=== PATIENT | female | born 1965 | race Caucasian/White ===

== ENCOUNTER 2017-01-31 13:22 | Emergency (ER) | payer SELFPAY ==
--- NOTE | ~2017-01-31 | ER ---
PATIENT'S NAME: NATHANAEL ANTUNEZ [facility] AGE: 51 Y [address] ROOM: [place] [address] LOCATION: [facility] ADMIT DATE: 01/31/2017 ER/Outpatient Report DISCHARGE DATE: 01/31/2017 FAMILY PHYSICIAN: PHYSICIAN, NO ATTENDING PHYSICIAN: Nelda James TIME SEEN: 1535 hours. CHIEF COMPLAINT: Left wrist pain. HISTORY OF PRESENT ILLNESS: The patient is a 51-year-old female who developed left wrist pain over the last 2 days. She denies any direct blows or falls to the wrist. She also denies any fever or redness involving the wrist. 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 Denies any history of gout or rheumatoid arthritis. ALLERGIES: NONE. HOME MEDICATIONS: See copied list. She has been using some ibuprofen for pain though. PAST MEDICAL HISTORY: Includes pbz-[id number]-awurtsjca diabetes, congestive heart failure, hypertension, and coronary artery disease. PAST SURGICAL HISTORY: Includes cholecystectomy, tonsillectomy, and hysterectomy. SOCIAL HISTORY: No recent tobacco or alcohol use. REVIEW OF SYSTEMS: GENERAL: Health good. HEAD/EENT: No recent sore throat. RESPIRATORY: Negative. CARDIOVASCULAR: Negative. MUSCULOSKELETAL: Includes left wrist pain with no history of any trauma. NEUROLOGIC: No numbness or tingling to her hand. PHYSICAL EXAMINATION: VITAL SIGNS: Blood pressure 164/78, temperature is 98.4, respiratory rate 20, PATIENT'S NAME: NATHANAEL ANTUNEZ [facility] AGE: 51 Y [address] ROOM: [place] [address] LOCATION: [facility] ADMIT DATE: 01/31/2017 ER/Outpatient Report DISCHARGE DATE: 01/31/2017 FAMILY PHYSICIAN: PHYSICIAN, NO ATTENDING PHYSICIAN: Nelda James pulse 98, and O2 saturation is 97% on room air. GENERAL APPEARANCE: Alert, in no distress. HEAD/EENT: Unremarkable. LUNGS: Clear. EXTREMITIES: Left Wrist: On exam, appears to be some slightly dorsal swelling. No redness. Does not appear warm. Motion is somewhat limited due to pain. Has good radial pulse. Good capillary refill. ASSESSMENT: Left wrist pain, probably related to overuse. PLAN: We put her wrist in a volar splint. She is to continue to do ibuprofen 600 mg t.i.d. for 5 days. Continue the ice and heat. Recommend followup in 3 to 5 days if not improving, sooner if she develops any fever, redness, or increased pain. The patient verbalized understanding of her recommendations and agreed. JOSHUA ERNST FOR [facility]/stefanie /[id number] d: 01/31/17 1443 t: 02/06/17 0757, OUTPATIENT REPORT
[~2017-01-31 13:22] MED LIST: AMARYL2 MG PO; ASPIRIN (CHILDR81 MG PO; GLUCOPHAGE1000 MG PO; LISINOPRIL-HCT1 EACH PO; NEURONTIN300 MG PO; NICODERM (HABIT14 MG TRANS; NICODERM / HABIT7 MG TRANS; NORVASC5 MG PO; PRAVACHOL40 MG PO; VIIBRYD40 MG PO
== END 2017-01-31 14:00 | disposition disaster alternative care site (69) ==
LOC: GMED 13:22
PROC: 2W3DX1Z Immobilization of Left Lower Arm using Splint (ICD-10-PCS; principal; 2017-01-31)
DX: M25.532 Pain in left wrist (principal); E11.9 Type 2 diabetes mellitus without complications; I11.0 Hypertensive heart disease with heart failure; I50.9 Heart failure, unspecified; Z90.49 Acquired absence of other specified parts of digestive tract; Z90.710 Acquired absence of both cervix and uterus; Z90.89 Acquired absence of other organs